=== PATIENT | male | born 1985 | race Caucasian/White ===

== ENCOUNTER → 2017-11-07 | Outpatient (CLI) | payer BC ==
--- NOTE | 2017-11-07 15:56 | RAD ---
5 views of the lumbar spine 11/07/2017 2:00 AM Indication: LUMBAR PAIN Comparison: None Findings: No evidence of acute fracture or alignment abnormality is identified. Vertebral body heights are maintained. Disc spaces are maintained. No spondylolysis or spondylolisthesis is identified. No acute soft tissue changes are identified. Impression: Normal radiographic appearance of the lumbar spine
== END | disposition home or self-care (01) ==
LOC: PMG 15:22
PROVIDERS: ATTEND Physician Assistant
DX: M54.5 Low back pain (principal)
CPT/HCPCS: 72110